=== PATIENT | male | born 1950 | race Caucasian/White ===

== ENCOUNTER 2022-11-05 13:26 | Observation (INO) | payer OTHER ==
--- OUTSIDE RECORDS SUMMARY | 2022-11-05 13:31 | XMS REPORT | Continuity of Care Document ---
:1950 Author Organization [facility] t Address [address] [place] [address] Care Team Providers Name Role Phone Jose Elias PAREKH, Jessy Primary Care Physician Diane Pollock MA Attending Clinician Unavailable Demarcus PAREKH, Balwinder BAlyx Attending Clinician Diann Amaya Attending Clinician Unavailable Provider , Not In System Attending Clinician Unavailable Maria Luz Hamilton MA Attending Clinician Unavailable Barbara Anderson RN Attending Clinician Unavailable Imelda Joaquin RN Attending Clinician Unavailable Zamzam Reyes DO Attending Clinician Micha Brenner MD Attending Clinician Keturah Cameron MD Attending Clinician Erik Tsang MD Attending Clinician [phone] Meme Almendarez RN Attending Clinician Unavailable Dee Lincoln MA Attending Clinician Unavailable Irene Huitron RN Attending Clinician Unavailable Anderson Mendoza Attending Clinician Unavailable ZAMZAM REYES Admitting Clinician Unavailable MD BALWINDER TRACY BAlyx Admitting Clinician Unavailable Payers Payer Name Policy Type Policy Number Effective Date Expiration Date S ource Problems Condition Condition Condition Status Onset Resolution Last Treating Co mments Source Name Details Category Date Date Treatment Clinician Date Chronic Chronic Disease Active Methodi obstructiv obstructiv 1-11 st e asthma e asthma 00:00: Hospit a with acute with acute 00 l exacerbati exacerbati on on Hypoxia Hypoxia Disease Active 2021-05 Methodi 0-20 [facility] 00:00: Hospita 00 l Malignant Malignant Disease Active Met hodi neoplasm neoplasm 4 st of lung of lung 00:00: Hospita 00 l Cough Cough Disease Active Methodi 4 st 00:00: Hospita 00 l Lung Lung Disease Active Methodi nodule nodule 08-21 st 00:00: Hospita 00 l Encounter Encounter Disease Active Met hodi for for 08-22 screening screening 00:00: Hosp arian for lung for lung 00 l cancer cancer Nicotine Nicotine Disease Active Metho di dependence dependence 08-22 , , 00:00: Hospita cigarettes cigarettes 00 l , in , in remission remission Lung Lung Disease Active Methodi nodule nodule 12-21 00:00: Hospita 00 l Insomnia Insomnia Disease Active Metho di 12-21 st 00:00: Hospita 00 l Obstructiv Obstructiv Disease Active 2018-05 M ethodi e chronic e chronic 2 bronchitis bronchitis 00:00: Ho spita without without 00 l exacerbati exacerbati on on Hypertensi Hypertensi Disease Active 2017-05 M ethodi on on 06-23 00:00: Hospita 00 l Gastroesop Gastroesop Disease Active 2017-05 M ethodi hageal hageal 0 reflux reflux 00:00: Hospita disease disease 00 l without without esophagiti esophagiti s s Need for Need for Disease Active 2017-05 Metho di vaccinatio vaccinatio 0 st n n 00:00: Hospita 00 l Chronic Chronic Disease Active Methodi obstructiv obstructiv 11-13 e e 00:00: Hospita pulmonary pulmonary 00 l disease disease COPD COPD Disease Active Methodi exacerbati exacerbati 11-13 st on on 00:00: Hospita 00 l Allergies, Adverse Reactions, Alerts Allergy Allergy Status Severity Reaction(s) Onset Inactive Treating Comm ents Source Name Type Date Date Clinician Levoflox Propensi Active Other (See 2019-05 Causes Me thodi acin ty to Comments) 1-[address] adverse 00:00: Hospita reaction 00 l s to drug Albutero Propensi Active Method i l ty to 6 st adverse 00:00: Hospita reaction 00 l s to drug Penicill Propensi Active Rash Method i in G ty to 10-25 st adverse 00:00: Hospita reaction 00 l s to drug Family History Family Member Diagnosis Comments Start Date Stop Date Source Natural mother Hypertension [facility] Natural mother Lung cancer [facility] Social History Social Habit Start Date Stop Date Quantity Comments Source Gender identity 2019-08-08 Identifies as male M ethodist 15:20:16 [facility] Sexual orientation 2019-08-08 Heterosexual Meth odist 15:20:16 (finding) [facility] Alcohol intake 2022-08-14 2022-08-14 Current non-drinker M ethodist 00:00:00 00:00:00 of alcohol Hospital (finding) History of Social 2022-08-14 2022-08-[address] function 00:00:00 00:00:00 [facility] Cigarettes smoked 2022-03-15 2022-03-15 [facility] per 00:00:00 00:00:00 Hospita l day) - Reported Cigarette 2022-03-15 2022-03-15 [facility] pack-[facility] 00:00:00 00:00:00 Hospital Tobacco use and 2022-03-15 2022-03-15 Former smokeless Met [facility] exposure 00:00:00 00:00:00 tobacco user [facility] History of tobacco 2016-03-09 Current smoker Me [facility]ist use 00:00:00 [facility] Sex Assigned At [birth year] [facility] 00:00:[facility] 00:[facility]:00 Hospital Smoking Status Start Date Stop Date Source Ex-smoker 2022-03-15 00:00:00 2022-03-15 00:00:00 [facility] Medications Ordered Filled Start Stop Current Ordering Indication Dosage Frequency Signature Comments Components Source Medication Medication Date Date Medication? Clinician (SIG) Name Name predniSONE Yes Po 40 mg x M ethodi (DELTASONE) 5-30 3 days, 30 st 10 mg 00:00: mg x 3 Hospita tablet 00 days, 20 l mg x 3 days, 10 mg x 3 days, 5 mg x 3 days levoFLOXaci 2022- No 500mg QD Take 1 Me thodi n 5-30 06-[address] (Levaquin) 00:00: 04:59 (500 mg Hos lena 500 MG 00 :00 total) by l tablet mouth daily for 7 days. Trelegy Yes QD Inhale 1 Method i Ellipta 4-[address] 100-62.5-25 00:00: s once Hosp arian mcg blister 00 daily. l with device powder for inhalation fluticasone 2022- Yes INHALE 1 M ethodi -umeclidin- 4-24 07-[address] vilanter 00:00: 04:59 MOUTH Hospita (Trelegy 00 :00 EVERY DAY l Ellipta) 100-62.5-25 mcg blister with device powder for inhalation diphenhydrA Yes 25mg QD Take 1 Meth irene MINE 3-21 tablet (25 st (BENADRYL) 12:12: mg total) Ho spita 25 mg 23 by mouth l tablet nightly as needed for sleep. multivitami Yes 1{tbl} QD Take 1 Me thodi n 3-[address] (THERAGRAN) 12:10: mouth Hospi ta tablet 48 daily. l atorvastati Yes 20mg QD Take 1 Meth irene n (LIPITOR) 3-21 tablet (20 st 20 mg 12:10: mg total) Hospita tablet 48 by mouth l daily. Default OP ins fluticasone Yes SHAKE Metho di propionate 3-[address] (FLONASE) 00:00: USE 2 Hospita 50 00 SPRAYS(100 l mcg/actuati MCG) IN on nasal EACH spray NOSTRIL DAILY fexofenadin 2023- Yes 180mg QD Take 1 Me thodi e (Krysta 3-21 03-[address] Allergy) 00:00: 04:59 (180 mg Hospi ta 180 MG 00 :00 total) by l tablet mouth daily. predniSONE 2022-2022- No 4 tabs Meth irene (DELTASONE) 3-21 04-[address] 10 mg 00:00: 04:59 days, 3 Hospita tablet 00 :00 tabs daily l X 3 days, 2 tabs daily X 3 days, 1 tab daily X 3 days, then 1/2 tab daily X 3 days. fluticasone 0 2023- No 100ug QD 2 sprays Methodi propionate 3-21 03-21 ([address] (Flonase 00:00: 00:00 total) by Hos lena Allergy 00 :00 Each Nare l Relief) 50 route mcg/actuati daily. on nasal spray Trelegy 2022- No QD Inhale Methodi Ellipta 1-13 04-[address] 100-62.5-25 00:00: 00:00 daily. Hos lena mcg blister 00 :00 l with device powder for inhalation levalbutero Yes [id number] 1.25mg Q6H Take 3 mL Methodi l (Xopenex) 1-11 (1.[address] 1.25 mg/3 00:00: total) by Hos lena mL 00 nebulizati l nebulizer on every 6 solution (six) hours as needed for wheezing. predniSONE 2021-05 No Take 4 Meth irene (DELTASONE) 2-29 03-27 tabs daily s t 10 mg 00:00: 00:00 x 3 days, Hospit a tablet 00 :00 3 tabs l daily x 3 days, 2 tabs daily x 3 days, 1 tab daily x 3 days, 1/2 daily x 3 days ipratropium 2021-05 No 3mL Q.25D Take 3 mL Methodi -albuteroL 0-24 10-[address] (DUO-NEB) 18:36: 00:00 nebulizati H ospita 0.5-2.5 45 :00 on 4 l mg/3 mL (four) nebulizer times a day. predniSONE 2021-05- No Take 4 Meth irene (DELTASONE) 0-20 12-29 tabs daily s t 10 mg 00:00: 00:00 x 3 days, Hospit a tablet 00 :00 3 tabs l daily x 3 days, 2 tabs daily x 3 days, 1 tab daily x 3 days, 1/2 daily x 3 days amLODIPine 2021- No TAKE 1 Meth irene (NORVASC) 5 9-21 12-[address] mg tablet 00:00: 05:59 MOUTH Hospit a 00 :00 EVERY DAY l multivitami Yes 1{tbl} QD Take 1 Me thodi n 5-[address] (THERAGRAN) 09:51: mouth Hospi ta tablet 27 daily. l atorvastati Yes 20mg QD Take 20 mg Methodi n (LIPITOR) 5-[address] 20 mg 09:51: in the Hospita tablet 27 morning. l Default OP ins . ipratropium Yes 3mL Q.25D Take 3 mL Methodi -albuteroL 5-[address] (DUO-NEB) 09:51: nebulizati Ho spita 0.5-2.5 27 on 4 l mg/3 mL (four) nebulizer times a day. levalbutero Yes [id number] 1.25mg Q6H Take 3 mL Methodi l (Xopenex) 5-31 (1.[address] 1.25 mg/3 00:00: total) by Hos lena mL 00 nebulizati l nebulizer on every 6 solution (six) hours as needed for wheezing. levalbutero 2022- No [id number] 1.25mg Q6H Take 3 mL Methodi l (Xopenex) 5-31 -11 (1.[address] 1.25 mg/3 00:00: 00:00 total) by Ho spita mL 00 :00 nebulizati l nebulizer on every 6 solution (six) hours as needed for wheezing. amLODIPine 2021- No 5mg QD Take 5 mg M ethodi (NORVASC) 5 -15 -[address] mg tablet 14:44: 00:00 daily. Hospi ta 51 :00 l amLODIPine 2021- No Take 1 Meth irene (NORVASC) 5 3-15 -[address] mg tablet 00:00: 04:59 mouth once H ospita 00 :00 daily l Trelegy 2021- No Inhale 1 Metho di Ellipta 3-15 -[address] 100-62.5-25 00:00: 04:59 mouth once Hospita mcg blister 00 :00 daily l with device powder for inhalation amLODIPine 2021- No Take 1 Meth irene (NORVASC) 5 3-15 -[address] mg tablet 00:00: 04:59 mouth once H ospita 00 :00 daily l Trelegy 2021- No Inhale 1 Metho di Ellipta 3-15 06-14 puff by 100-62.5-25 00:00: 04:59 mouth once Hospita mcg blister 00 :00 daily l with device powder for inhalation ipratropium 2021- No [id number] 3mL Q.25D Take 3 mL Methodi -albuteroL -16 -19 by (DUO-NEB) 00:00: 04:59 nebulizati H ospita 0.5-2.5 00 :00 on 4 l mg/3 mL (four) nebulizer times a day for 30 days. sulfamethox 2021- No 1{tbl} Q.5D Take 1 M ethodi azole-trime 15 - tablet by thoprim 00:00: 05:59 mouth 2 Hospit a (Bactrim) 00 :00 (two) l 400-80 mg times a per tablet day for 7 days. levalbutero 2022- No [id number] 1{puff} Q4H Inhale 1-2 Methodi l (XOPENEX 2-14 02-[address] HFA) 45 00:00: 05:59 every 4 Hospit a mcg/actuati 00 :00 (four) l on inhaler hours as needed for wheezing. levalbutero 2022- [place] [id number] .63mg Q4H Take 3 mL Methodi l (XOPENEX) 2-14 02-15 (0.[address] 0.63 mg/3 00:00: 05:59 total) by Ho spita mL 00 :00 nebulizati l nebulizer on every 4 solution (four) hours as needed for wheezing .asthma attack. levalbutero 2021- No [id number] 1{puff} Q4H Inhale 1-2 Methodi l (XOPENEX 2-14 10-[address] HFA) 45 00:00: 00:00 every 4 Hospit a mcg/actuati 00 :00 (four) l on inhaler hours as needed for wheezing. levalbutero 2021- [place] [id number] .63mg Q4H Take 3 mL Methodi l (XOPENEX) 2-14 10-24 (0.[address] 0.63 mg/3 00:00: 00:00 total) by Ho spita mL 00 :00 nebulizati l nebulizer on every 4 solution (four) hours as needed for wheezing .asthma attack. predniSONE 2021- No 4 tabs Meth irene (DELTASONE) 2-14 03-[address] 10 mg 00:00: 05:59 days, 3 Hospita tablet 00 :00 tabs daily l X 3 days, 2 tabs daily X 3 days, 1 tab daily X 3 days, then 1/2 tab daily X 3 days. Trelegy 2021- No Inhale 1 Metho di Ellipta 1-10 03-[address] 100-62.5-25 00:00: 00:00 mouth once Hospita mcg blister 00 :00 daily l with device powder for inhalation fluticasone 2020-05 No QD Inhale 1 M ethodi -umeclidin- 0-18 10-18 inhalation s t vilanter 08:27: 00:00 s once Hospit a (Trelegy 30 :00 daily. l Ellipta) 100-62.5-25 mcg blister with device powder for inhalation Trelegy 2020-05 No INHALE 1 Metho di Ellipta 0-18 01-[address] 100-62.5-25 00:00: 00:00 DAILY Hosp arian mcg blister 00 :00 l with device powder for inhalation DurezoL No Methodi 0.05 % 06-29 st drops 00:00: 00:00 Hospita 00 :00 l Restasis 2020- No 1[drp] Q.5D 1 drop 2 Me thodi 0.05 % 06-04 (two) st ophthalmic 00:00: 00:00 times a Hos lena emulsion 00 :00 day. l hydroCHLORO Yes 25mg 25 mg. Meth irene thiazide 3-06 st (HYDRODIURI 00:00: Hospit a L) 12.5 MG 00 l tablet hydroCHLORO Yes 25mg 2 tablets M ethodi thiazide 3-06 ([address] (HYDRODIURI 00:00: total). Hos lena L) 12.5 MG 00 l tablet Immunizations Ordered Immunization Filled Immunization Date Status Commen ts Source Name Name FLUZONE HIGH-DOSE PF 2022-03-15 Completed Meth odist 00:00:00 Hospital PFIZER READY TO USE 2021-06-05 Completed Metho dist COVID-19 MRNA 00:00:00 Hospital VACCINATION PFIZER READY TO USE 2021-06-05 Completed Metho dist COVID-19 MRNA 00:00:00 Hospital VACCINATION FLUZONE HIGH-DOSE PF 2021-03-08 Completed [facility] FLUZONE HIGH-DOSE PF 2021-03-08 Completed Meth odist 00:00:00 Hospital PFIZER COVID-19 MRNA 2020-07-26 Completed Meth odist VACCINATION 00:00:00 [facility] PFIZER COVID-19 MRNA 2020-07-26 Completed Meth odist VACCINATION 00:00:00 [facility] PFIZER COVID-19 MRNA 2020-07-05 Completed Meth odist VACCINATION 00:00:00 [facility] PFIZER COVID-19 MRNA 2020-07-05 Completed Meth odist VACCINATION 00:00:00 [facility] FLUZONE HIGH-DOSE PF 2018-02-25 Completed [facility] odist 00:00:00 [facility] FLUZONE HIGH-DOSE PF 2018-02-25 Completed Meth odist 00:00:00 Hospital Vital Signs Vital Name Observation Time Observation Value Comments Source Systolic blood 2022-08-14 17:10:00 144 mm[Hg] Method [facility] pressure Diastolic blood 2022-08-14 17:10:00 69 mm[Hg[facility] pressure Heart rate 2022-08-14 17:10:00 83 /min [facility] Body temperature 2022-08-14 17:10:00 36.78 Maya [facility] Respiratory rate 2022-08-14 17:10:00 14 /min [facility] Body height 2022-08-14 17:10:00 167.6 cm [facility] Body weight 2022-08-14 17:10:00 62.506 kg [facility] BMI 2022-08-14 17:10:00 22.24 kg/m2 [facility] Oxygen saturation in 2022-08-14 17:10:00 91 /min [facility] Arterial blood by Pulse oximetry Systolic blood 2021-10-24 14:50:00 151 mm[Hg] [facility] pressure Diastolic blood 2021-10-24 14:50:00 70 mm[Hg] [facility] pressure Heart rate 2021-10-24 14:50:00 77 /min [facility] Body temperature 2021-10-24 14:50:00 37 Maya [facility] Respiratory rate 2021-10-24 14:50:00 14 /min [facility] Body height 2021-10-24 14:50:00 167.6 cm [facility] Body weight 2021-10-24 14:50:00 59.693 kg [facility] BMI 2021-10-24 14:50:00 21.24 kg/m2 [facility] Oxygen saturation in 2021-10-24 14:50:00 92 /min [facility] Arterial blood by Pulse oximetry Procedures Procedure Date / Time Performing Clinician Source Performed PULMONARY FUNCTION TEST 2022-06-06 [facility] CHEST W CONTRAST 2022-02-28 00:00:00 Provider, Not In [facility] System PET CT SKULL BASE TO MID 2021-10-19 17:01[facility]17 [facility] POC GLUCOSE 2021-10-19 15:01:00 [facility] XR CHEST 1 VW PORTABLE 2021-08-22 11:51:54 Erik Tsang [facility] Julio COVID-19 ANTI-SPIKE IGG 2021-08-22 09:10:00 [facility] ANTIBODY TITER COVID-19 SEROLOGY PATIENT 2021-08-22 09:10[facility] HC COMPLETE BLD COUNT 2021-08-22 09:10:00 [facility] W/AUTO DIFF COMPREHENSIVE METABOLIC 2021-08-22 09:10:00 [facility] PANEL ESTIMATED GFR 2021-08-22 09:10:00 [facility] XR CHEST 1 VW PORTABLE 2021-08-22 01:35:00 [facility] XR CHEST 1 VW PORTABLE 2021-08-21 21:11:58 [facility] XR CHEST 1 VW PORTABLE 2021-08-21 19:56:30 [facility] SURGICAL PATHOLOGY 2021-08-21 17:42:00 Balwinder Tracy [facility] REQUEST XR CHEST 1 VW PORTABLE 2021-08-21 [facility]:12[facility]SY NO 2021-08-21 16:54:21 Balwinder Tracy [facility] CONTRAST COVID-19 QUALITATIVE 2021-08-17 15:22:00 Demarcus Balwindertyler Carpenter [facility] RT-PCR PARTIAL THROMBOPLASTIN 2021-08-17 15:22:00 [facility] PROTHROMBIN TIME WITH INR 2021-08-17 15:22:00 Balwinder Tracy [facility] HC COMPLETE BLD COUNT 2021-08-17 15:22:00 Demarcus Balwinder Jayden [facility] W/AUTO DIFF BASIC METABOLIC PANEL 2021-08-17 15:22:00 [facility] Jayden [facility] ESTIMATED GFR 2021-08-17 15:22:00 [facility] CT CHEST WO CONTRAST 2021-07-22 15:49:51 [facility] Balwindertyler Carpenter [facility] CT CHEST WO CONTRAST 2021-02-03 20:16:00 [facility] Jayden [facility] Plan of Care Planned Activity Planned Date Details Comments Source Future Scheduled 2022-11-01 Screening for [facility] Test 16:35:36 malignant neoplasm of colon (procedure) [code = 422746253] Future Scheduled 2022-11-01 Screening for [facility] Test 16:35:36 malignant neoplasm of colon (procedure) [code = 430569006] Future Scheduled 2022-11-01 65+ PNEUMOCOCCAL [facility] Test 16:35:36 VACCINE (1 - PCV) [code = 65+ PNEUMOCOCCAL VACCINE (1 - PCV)] Future Scheduled 2022-11-01 Hepatitis C screening [facility] Test 16:35:36 (procedure) [code = 182625466] Future Scheduled 2022-11-01 Screening for [facility] Test 16:35:36 malignant neoplasm of colon (procedure) [code = 739014514] Future Scheduled 2022-11-01 Screening for [facility] Test 16:35:36 malignant neoplasm of colon (procedure) [code = 673174095] Future Scheduled 2022-11-01 SHINGLES VACCINES (1 Met [facility] Test 16:35:36 of 2) [code = SHINGLES VACCINES (1 of 2)] Future Scheduled 2022-11-01 COVID-19 VACCINE (4 - [facility] Test 16:35:36 Pfizer series) [code = COVID-19 VACCINE (4 - Pfizer series)] Future Scheduled 2022-11-01 INFLUENZA VACCINE [facility] Test 16:35:36 [code = INFLUENZA VACCINE] Future Scheduled 2022-11-01 Screening for [facility] Test 16:35:36 malignant neoplasm of colon (procedure) [code = 295456422] Future Scheduled 2022-02-01 HEPATITIS B VACCINES Met [facility] Test 12:54:14 (1 of 3 - 3-dose series) [code = HEPATITIS B VACCINES (1 of 3 - 3-dose series)] Future Scheduled 2022-02-01 65+ [facility]CCAL [facility] 12:54:14 VACCINE (1 - PCV) [code = 65+ PNEUMOCOCCAL VACCINE (1 - PCV)] Future Scheduled 2022-02-01 Hepatitis C screening [facility] Test 12:54:14 (procedure) [code = 709773773] Future Scheduled 2022-02-01 COLONOSCOPY SCREENING [facility] Test 12:54:14 [code = COLONOSCOPY SCREENING] Future Scheduled 2022-02-01 SHINGLES VACCINES (1 Met [facility] Test 12:54:14 of 2) [code = SHINGLES VACCINES (1 of 2)] Future Scheduled 2022-02-01 COVID-19 VACCINE (4 - [facility] Test 12:54:14 Booster for Pfizer series) [code = COVID-19 VACCINE (4 - Booster for Pfizer series)] Future Scheduled 2022-02-01 INFLUENZA VACCINE Method [facility] Test 12:54:14 [code = INFLUENZA VACCINE] Encounters Start End Encounter Admission Attending Care Care Encounter Source Date/Time Date/Time Type Type Clinicians Facility Department ID 2022-10-26 2022-10-26 Dee Dee Pollock, 1.2.840.1 [id number] Methodi 00:00:00 00:00:[address] 3.430.2.7 Hospit a .3.337409 l .8 2022-10-23 2022-10-23 Orders Pollock, 1.2.840.1 [id number] Methodi 00:00:00 00:00:00 Only Diane 66356.1.[address] 3.430.2.7 Hospit a .3.169367 l .8 2022-10-23 2022-10-23 Telephone Demarcus, 1.2.840.1 [id number] Methodi 00:00:00 00:00:00 Balwinder Carpenter [address] 3.430.2.7 Hospit a .3.048676 l .8 2022-09-17 2022-09-17 Telephone Demarcus 1.2.840.1 [id number] Methodi 00:00:00 00:00:00 Balwinder Carpenter [address]12.[address] 3.430.2.7 Hospit a .3.044466 l .8 2022-09-17 2022-09-17 Refill Demarcus 1.2.840.1 [id number] Methodi 00:00:00 00:00:00 Balwinder Carpenter [address] 3.430.2.7 Hospit a .3.973137 l .8 2022-08-14 2022-08-14 Office Demarcus, 1.2.840.1 [id number] Methodi 12:15:00 12:30:57 Visit Balwinder Carpenter 44338.1.[address] 3.430.2.7 Hospit a .3.725797 l .8 2022-08-14 2022-08-14 Outpatient DEMARCUS, [facility] [id number] [address] [place] 00:00:00 00:00:00 BALWINDER [address] 2022-08-14 2022-08-14 Refill Tracy, 1.2.840.1 [id number] Methodi 00:00:00 00:00:00 Balwinder R[address]Alyx [address] 3.430.2.7 Hospit a .3.019562 l .8 2022-08-14 2022-08-14 Travel 1.2.840.1 [id number] [id number] Methodi 00:00:00 00:00:[address] 3.430.2.7 0.2.7.3.698 Ho spita .3.423557 084.8 l .8 2022-06-06 2022-06-06 Clinical Jose Luis, 1.2.840.1 [id number] Methodi 10:30:00 14:39:22 Support Diann 97463.1.[address] 3.430.2.7 Hospit a .3.785293 l .8 2022-06-06 2022-06-06 Office Demarcus 1.2.840.1 [id number] Methodi 12:15:00 14:11:21 Visit Balwinder RonaldoAlyx 03310.1.[address] 3.430.2.7 Hospit a .3.070743 l .8 2022-06-06 2022-06-06 Travel 1.2.840.1 1.2.982.819 [id number] Methodi 00:00:00 00:00:[address] 3.430.2.7 0.2.7.3.698 Ho spita .3.967224 084.8 l .8 2022-06-06 2022-06-06 Outpatient DEMARCUS [facility] [id number] [address] [place] 00:00:00 00:00:00 [address] 2022-06-06 2022-06-06 Outpatient [facility] [id number] [address] [place] [place] 00:00:00 00:00:[address] 2022-05-24 2022-05-24 Telephone Demarcus 1.2.840.1 [id number] Methodi 00:00:00 00:00:00 Balwinder Carpenter [address]1.[address] 3.430.2.7 Hospit a .3.445677 l .8 2022-05-16 2022-05-16 Telephone Demarcus, 1.2.840.1 [id number] Methodi 00:00:00 00:00:00 Balwinder Carpenter [address] 3.430.2.7 Hospit a .3.242187 l .8 2022-03-23 2022-03-23 Orders Provider, 1.2.840.1 [id number] Methodi 00:00:00 00:00:00 Only Not In 74347.1.[address] System 3.430.2.7 Hospit a .3.247125 l .8 2022-03-15 2022-03-15 Office Demarcus, 1.2.840.1 [id number] Methodi 11:15:00 12:04:27 Visit Balwinder RonaldoAlyx 92351.1.[address] 3.430.2.7 Hospit a .3.192523 l .8 2022-03-15 2022-03-15 Travel 1.2.840.1 1.2.456.726 [id number] Methodi 00:00:00 00:00:[address] 3.430.2.7 0.2.7.3.698 Ho spita .3.936744 084.8 l .8 2022-03-15 2022-03-15 Outpatient [facility] [id number] [address] [place] 00:00:00 00:00:00 BALWINDER [address] 2022-02-14 2022-02-14 Refill Demarcus, 1.2.840.1 [id number] Methodi 00:00:00 00:00:00 Balwinder Carpenter [address]7529.1.[address] 3.430.2.7 Hospit a .3.339335 l .8 2021-10-30 2021-10-30 Telephone Alfonso, 1.2.840.1 [id number] [id number] Methodi 00:00:00 00:00:00 Maria Luz 23633.1.[address] 3.430.2.7 Hospit a .3.309382 l .8 2021-10-24 2021-10-24 [facility], 1.2.840.1 [id number] Methodi 10:00:00 10:26:48 Visit Balwinder Carpenter 84776.1.[address] 3.430.2.7 Hospit a .3.687112 l .8 2021-10-24 2021-10-24 Travel 1.2.840.1 1.2.778.494 [id number] Methodi 00:00:00 00:00:[address] 3.430.2.7 0.2.7.3.698 Ho spita .3.714763 084.8 l .8 2021-10-19 2021-10-19 [facility], 1.2.840.1 [id number] Methodi 09:40:41 23:59:00 Encounter Balwinder Carpenter [address].1.[address] 3.430.2.7 Hospit a .3.421362 l .8 2021-10-19 2021-10-19 Travel 1.2.840.1 1.2.444.339 4410 [id number] Methodi 00:00:00 00:00:[address] 3.430.2.7 0.2.7.3.698 Ho spita .3.208651 084.8 l .8 2021-10-03 2021-10-03 Travel 1.2.840.1 1.2.978.513 5785 [id number] Methodi 00:00:00 00:00:[address] 3.430.2.7 0.2.7.3.698 Ho spita .3.618486 084.8 l .8 2021-08-31 2021-08-31 [facility] Alfonso, 1.2.840.1 [id number] 1594 Methodi 00:00:00 00:00:00 Only Maria Luz 67101.1.[address] 3.430.2.7 Hospit a .3.609803 l .8 2021-08-28 2021-08-28 Office Demarcus, 1.2.840.1 [id number] 8522 Methodi 11:15:00 12:01:56 Visit Balwinder Carpenter 39960.1.[address] 3.430.2.7 Hospit a .3.866973 l .8 2021-08-25 2021-08-25 Telephone Justin, 1.2.840.1 [id number] 244 [id number] Methodi 00:00:00 00:00:[address] 3.430.2.7 Hospit a .3.507094 l .8 2021-08-24 2021-08-24 Telephone Emani, 1.2.840.1 [id number] 2100 [id number] Methodi 00:00:00 00:00:[address] 3.430.2.7 Hospit a .3.748558 l .8 2021-08-21 2021-08-22 Hospital Balwinder Tracy. 1.2.840.1 18415 1012 [id number] Methodi 18:34:00 15:22:00 Encounter Zamzam Reyes 37445.1.[address] [facility] 3.430.2.7 Hospita Keturah Cameron .3.352040 l .8 2021-08-21 2021-08-21 [facility], 1.2.840.1 [id number] 97725 97514 Methodi 16:20:13 18:33:00 Encounter Erik 45984.1.[address] Julio 3.430.2.7 Hosp arian .3.037666 l .8 2021-08-21 2021-08-21 [facility], 1.2.840.1 [id number] 24312 85831 Methodi 15:51:20 16:19:00 Encounter Erik 66837.1.[address] Julio 3.430.2.7 Hosp arian .3.695592 l .8 2021-08-21 2021-08-21 [facility], 1.2.840.1 [id number] Methodi 12:00:27 15:50:00 Encounter Erik 56352.1.[address] Julio 3.430.2.7 Hosp arian .3.124380 l .8 2021-08-21 2021-08-21 [facility] Tsang, 1.2.840.1 [id number] Methodi 11:59:07 11:59:07 Encounter Erik 27284.1.[address] Julio 3.430.2.7 Hosp arian .3.192287 l .8 2021-08-21 2021-08-21 Outpatient [facility] [id number] [address] [place] [address] 00:00:00 00:00:[address]RI[address] 2021-08-21 2021-08-21 Orders Alfonso, 1.2.840.1 [id number] 6625 Methodi 00:00:00 00:00:00 Only Maria Luz 57030.1.[address] 3.430.2.7 Hospit a .3.653525 l .8 2021-08-21 2021-08-21 Travel 1.2.840.1 1.2.163.153 6689 164725 Methodi 00:00:00 00:00:[address] 3.430.2.7 0.2.7.3.698 Ho spita .3.257728 084.8 l .8 2021-08-18 2021-08-18 Dee Dee Tracy, 1.2.840.1 [id number] 2100 [id number] Methodi 00:00:00 00:00:00 Bal[address] 3.430.2.7 Hospit a .3.057502 l .8 2021-08-17 2021-08-17 Pre-Admiss Demarcus, 1.2.840.1 [id number] 757 [id number] Methodi 10:30:00 11:00:00 ion Balwinder B. 68042.1.[address] Testing 3.430.2.7 Hospit a .3.305133 l .8 2021-08-17 2021-08-17 Travel 1.2.840.1 1.2.600.808 5138 687714 Methodi 00:00:00 00:00:[address] 3.430.2.7 0.2.7.3.698 Ho spita .3.917163 084.8 l .8 2021-08-09 2021-08-09 Telephone Erickson, 1.2.840.1 [id number] 2099 104484 Methodi 00:00:00 00:00:[address] 3.430.2.7 Hospit a .3.756203 l .8 2021-08-09 2021-08-09 Travel 1.2.840.1 1.2.098.972 0506 415749 Methodi 00:00:00 00:00:[address] 3.430.2.7 0.2.7.3.698 Ho spita .3.860528 084.8 l .8 2021-08-08 2021-08-08 Refill Demarcus 1.2.840.1 [id number] 4926 Methodi 00:00:00 00:00:00 Balwinder BAlyx [address] 3.430.2.7 Hospit a .3.223592 l .8 2021-08-03 2021-08-03 Travel 1.2.840.1 1.2.693.326 1780 720125 Methodi 00:00:00 00:00:[address] 3.430.2.7 0.2.7.3.698 Ho spita .3.761667 084.8 l .8 2021-07-31 2021-07-31 Juan Pablo Tracy 1.2.840.1 [id number] 1533 Methodi 11:15:00 12:19:54 Visit Balwinder Carpenter 67785.1.[address] 3.430.2.7 Hospit a .3.476719 l .8 2021-07-31 2021-07-31 Travel 1.2.840.1 1.2.676.915 6851 508727 Methodi 00:00:00 00:00:[address] 3.430.2.7 0.2.7.3.698 Ho spita .3.871359 084.8 l .8 2021-07-22 2021-07-22 [facility], 1.2.840.1 [id number] 57 Methodi 09:35:58 23:59:00 Encounter Balwinder Carpenter 60147.1.[address] 3.430.2.7 Hospit a .3.974473 l .8 2021-07-22 2021-07-22 Travel 1.2.840.1 1.2.980.090 3527 690736 Methodi 00:00:00 00:00:[address] 3.430.2.7 0.2.7.3.698 Ho spita .3.520531 084.8 l .8 2021-07-17 2021-07-17 [facility] 1.2.840.1 [id number] 2099 274647 Methodi 00:00:00 00:00:00 Balwinder Carpenter 40421.1.[address] 3.430.2.7 Hospit a .3.883057 l .8 2021-07-13 2021-07-13 Travel 1.2.840.1 1.2.698.609 0762 527672 Methodi 00:00:00 00:00:[address] 3.430.2.7 0.2.7.3.698 Ho spita .3.872699 084.8 l .8 2021-07-12 2021-07-12 [facility] Melvin, 1.2.840.1 [id number] 812339 1070 Methodi 00:00:00 00:00:00 Only Quratulain 23247.1.1 794 s t 3.430.2.7 Hospit a .3.121211 l .8 2021-07-12 2021-07-12 Telephone Demarcus, 1.2.840.1 [id number] 2100 [id number] Methodi 00:00:00 00:00:00 Balwinder Carpenter [address]304.1.[address] 3.430.2.7 Hospit a .3.278451 l .8 2021-07-10 2021-07-10 Office Demarcus, 1.2.840.1 [id number] 7577 Methodi 10:30:00 11:21:40 Visit Balwinder Carpenter 69501.1.[address] 3.430.2.7 Hospit a .3.328517 l .8 2021-07-10 2021-07-10 Travel 1.2.840.1 1.2.763.475 4311 643343 Methodi 00:00:00 00:00:[address] 3.430.2.7 0.2.7.3.698 Ho spita .3.883616 084.8 l .8 2021-06-13 2021-06-13 [facility], 1.2.840.1 [id number] 2100 921948 Methodi 00:00:00 00:00:00 Amada Bonilla 62433.1.1 927 s t ip 3.430.2.7 Hospit a .3.284464 l .8 2021-06-05 2021-06-05 Refill Demarcus, 1.2.840.1 [id number] 6730 Methodi 00:00:00 00:00:00 Balwinder [address]gins[address] 40124.[address] 3.430.2.7 Hospit a .3.437402 l .8 2021-03-16 2021-03-16 Travel 1.2.840.1 1.2.631.354 7009 943154 Methodi 00:00:00 00:00:[address] 3.430.2.7 0.2.7.3.698 Ho spita .3.879687 084.8 l .8 2021-03-14 2021-03-14 [facility], 1.2.840.1 [id number] 9386 Methodi 00:00:00 00:00:00 Only Quratulain 94313.1.1 908 s t 3.430.2.7 Hospit a .3.117754 l .8 2021-03-11 2021-03-11 [facility], 1.2.840.1 [id number] 166438 6311 Methodi 00:00:00 00:00:00 Balwinder Carpenter [address]65.1.[address] 3.430.2.7 Hospit a .3.331234 l .8 2021-03-08 2021-03-08 [facility] Balwinder Tracy. 1.2.840.1 40510 5001 [id number] Methodi 15:30:00 15:30:00 Support Anderson Mendoza 46233.1.[address] 3.430.2.7 Hospit a .3.320400 l .8 2021-03-08 2021-03-08 [facility], 1.2.840.1 [id number] 1907 Methodi 11:30:00 13:47:37 Visit Balwinder Carpenter 21680.1.[address] 3.430.2.7 Hospit a .3.645313 l .8 2021-03-08 2021-03-08 Travel 1.2.840.1 1.2.584.375 7367 544539 Methodi 00:00:00 00:00:[address] 3.430.2.7 0.2.7.3.698 Ho spita .3.569477 084.8 l .8 2021-02-03 2021-02-03 [facility] Tracy, 1.2.840.1 [id number] 69869 65930 Methodi 14:11:10 23:59:00 Encounter Balwinder Carpenter 51586.1.[address] 3.430.2.7 Hospit a .3.740711 l .8 2021-02-03 2021-02-03 Travel 1.2.840.1 1.2.249.504 3343 [id number] Methodi 00:00:00 00:00:[address] 3.430.2.7 0.2.7.3.698 Ho spita .3.877322 084.8 l .8 2020-10-04 2020-10-04 Outpatient [facility] [id number] [address] [place] 00:00:00 00:00:[address] 2020-09-29 2020-09-29 Outpatient [facility] [id number] [address] [place] 00:00:00 00:00:00 BALWINDER [address] 2020-09-09 2020-09-09 Outpatient [facility] [id number] [address] [place] 00:00:00 00:00:00 BALWINDER [address] 2020-08-22 2020-08-22 Outpatient [facility] [id number] [address] [place] 00:00:00 00:00:[address] 2020-04-25 2020-04-25 Outpatient [facility] [id number] [address] [place] 00:00:00 00:00:00 BALWINDER [address] 2019-12-22 2019-12-22 Outpatient [facility] [id number] [address] [place] 00:00:00 00:00:[address] 2019-12-22 2019-12-22 Outpatient [facility] [id number] [address] [place] 00:00:00 00:00:00 BAL[address]ER [address] 2019-08-06 2019-08-06 Outpatient [facility] [id number] [address] [place] 00:00:00 00:00:00 BALWINDER [address] 2019-05-06 2019-05-06 Outpatient [facility] [id number] [address] [place] 00:00:00 00:00:00 BALWINDER [address] Results Test Description Test Time Test Comments Results Result Comments Source Pulmonary function tests, complete (clinic performed) 2023-0 1-11 19:27:59 Test Item Value Reference Range Interpretation Comme nts VC Pre (test code = 5374) 2.84 L 2.64-4.20 VC Predicted (test code = 3.42 5372) VC LLN (test code = 5373) 2.64 VC % Pre of Predicted (test 83.0 % code = 5375) TLC Pre (test code = 5416) 7.09 L 4.76-7.06 TLC Predicted (test code = 5.91 5414) TLC LLN (test code = 5415) 4.76 TLC % Pre of Predicted (test 120.1 % code = 5417) RV Pre (test code = 5402) 4.25 L 1.79-3.14 RV Predicted (test code = 2.46 5400) RV LLN (test code = 5401) 1.79 RV % Pre of Predicted (test 172.9 % code = 5403) RV % TLC Pre (test code = 59.97 % 32.67-50.63 5409) RV % TLC Predicted (test code 42 = 5407) RV % TLC LLN (test code = 33 5408) RV % TLC % Pre of Predicted 144.0 % (test code = 5410) R0.5IN Pre (test code = 5514) 2.98 See_Comment [Automated message] The system which generated this result transmitted ref erence range: 3.06 - 3.06 cmH 2O*s/L. The reference range was not used to interpret this result as normal/abnormal . R0.5IN Predicted (test code = 3.06 5512) R0.5IN LLN (test code = 5513) 3.06 R0.5IN % Pre of Predicted 97.6 % (test code = 5515) FRCpl Pre (test code = 5388) 5.97 L 2.37-4.34 FRCpl % Predicted (test code = 3.35 5386) FRCpl % LLN (test code = 5387) 2.37 FRCpl % Pre of Predicted (test 178.2 % code = 5389) ERV Pre (test code = 5381) 1.72 L 0.89-0.89 ERV Predicted (test code = 0.89 5379) ERV LLN (test code = 5380) 0.89 ERV % Pre of Predicted (test 192.8 % code = 5382) IC Pre (test code = 5395) 1.12 L 2.39-2.39 IC Predicted (test code = 2.39 5393) IC LLN (test code = 5394) 2.39 IC % Pre of Predicted (test 47.0 % code = 5396) sR0.5IN Pre (test code = 5521) 18.98 cmH2O*s Raw Pre (test code = 5507) 6.26 See_Comment [Automated message] The system which generated this result transmitted ref erence range: 3.06 - 3.06 cmH 2O*s/L. The reference range was not used to interpret this result as normal/abnormal . Raw Predicted (test code = 3.06 5505) Raw LLN (test code = 5506) 3.06 Raw % Pre of Predicted (test 204.6 % code = 5508) sGaw Predicted (test code = 0.03 See_Comment [Automated message] The system 5528) which generated this result transmitted ref erence range: 0.08 - 0.08 1/( cmH2O*s). The reference range was not used to interpret this result as normal/abnormal . sGaw Predicted (test code = 0.08 5526) sGaw LLN (test code = 5527) 0.08 sGaw % Pre of Predicted (test 30.1 % code = 5529) FEV1 Post (test code = 5349) 1.27 L 1.83-3.15 FEV1 Pre (test code = 5348) 1.21 L 1.83-3.15 FEV1 Predicted (test code = 2.49 5302) FEV1 LLN (test code = 5347) 1.83 FEV1 % Pre of Predicted (test 48.8 % code = 5308) FEV1 % Post of Predicted (test 50.9 % code = 5350) FEV1 % Change (test code = 4.2 % 5351) FVC Post (test code = 5356) 2.83 L 2.64-4.20 FVC Pre (test code = 5354) 2.84 L 2.64-4.20 FVC Predicted (test code = 3.42 5307) FVC LLN (test code = 5353) 2.64 FVC % Pre of Predicted (test 83.0 % code = 5355) FVC % Post of Predicted (test 82.6 % code = 5357) FVC % Change (test code = -0.4 % 5358) FEV1/FVC % Post (test code = 44.74 % 63.72-83.08 5363) FEV1/FVC % Pre (test code = 42.74 % 63.72-83.08 5361) FEV1/FVC % Predicted (test 73 code = 5359) FEV1/FVC % LLN (test code = 64 5360) FEV1/FVC % Pre of Predicted 58.2 % (test code = 5362) FEV1/FVC % Post of Predicted 61.0 % (test code = 5364) FEV1/FVC % Change (test code = 4.7 % 5365) FEF 25-75% Post (test code = 0.40 L/s 0.55-3.22 5549) FEF 25-75% Pre (test code = 0.39 L/s 0.55-3.22 5547) FEF 25-75% Predicted (test 1.89 code = 5546) FEF 25-75% LLN (test code = 0.55 5545) FEF 25-75% % Pre of Predicted 20.8 % (test code = 5548) FEF 25-75% % Post of Predicted 21.4 % (test code = 5550) FEF 25-75% % Change (test code 3.0 % = 5551) PEF Post (test code = 5369) 4.69 L/s 5.03-8.90 PEF Pre (test code = 5367) 4.63 L/s 5.03-8.90 PEF Predicted (test code = 6.96 5310) PEF LLN (test code = 5366) 5.03 PEF % Pre of Predicted (test 66.5 % code = 5368) PEF % Post of Predicted (test 67.3 % code = 5370) PEF % Change (test code = 1.2 % 5371) DLCO Pre (test code = 5423) 7.78 See_Comment [Automated message] The system which generated this result transmitted ref erence range: 15.45 - 31.38 m l/(min*mmHg). The reference range was not used to interpret this result as normal/abnormal . DLCO Predicted (test code = 23.41 5421) DLCO LLN (test code = 5422) 15.45 DLCO % Pre of Predicted (test 33.2 % code = 5424) DL/VA Pre (test code = 5437) 1.67 See_Comment [Automated message] The system which generated this result transmitted ref erence range: 3.05 - 5.45 ml/ (min*mmHg*L). The reference range was not used to interpret this result as normal/abnormal . 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 N marquez: Mutahr code = 08347-4) [employer]agea[employer] ID: [id number] [facility] [id number] 16:23:31 Test Item Value Reference Range Interpretation Comments Case number (test [id number] code = 1154425) Surgical pathology See link below for PDF report (test code = Lab Report 2255) Result status (test This is Supplemental code = 0933337) Report for [id number] [facility] RNA [Presence] in Respiratory specimen by MICHELLE with probe [id number] 18:49:03 Test Item Value Reference Range Interpretation Comments SARS-CoV-2 (COVID-19) RNA Not detected [Presence] in Respiratory specimen by MICHELLE with probe detection (test code = 60061-5) Whether patient is employed in a Unknown healthcare setting (test code = 65651-2) Whether the patient has symptoms Unknown related to condition of interest (test code = 32731-1) Whether the patient was Unknown hospitalized for condition of interest (test code = 59505-6) Whether the patient was admitted Unknown to intensive care unit (ICU) for condition of interest (test code = 30959-5) Whether patient resides in a Unknown congregate care setting (test code = 42599-2) status (test code = Unknown 92320-8) Date and time of symptom onset Unknown (test code = 68525-1) [facility]
[2022-11-05 13:56] LABS: Absolute Lymphocytes (CBC) 1.1 K/uL (0.7-4.9); Hematocrit 44.3 % (39.6-49.0); Lymphocytes % 8.5 % (15.3-44.8); MCV 89.4 fL (80-100); MPV 7.2 fL (7.6-11.3); RBC Red Blood Cell Count 4.95 M/uL (4.33-5.43)
[2022-11-05 14:12] LABS: Albumin 2.8 g/dL (3.4-5.0); Bilirubin Direct 0.3 mg/dL (0-0.2); Bilirubin Indirect, Calculated 1.1 mg/dL (0.2-0.8); Bilirubin Total 1.4 mg/dL (0.2-1.0); Magnesium 2.3 mg/dL (1.6-2.4); Potassium 3.4 mEq/L (3.5-5.1); Protein, Total 7.3 g/dL (6.4-8.2); Troponin High Sensitivity 10.1 pg/mL (<58.9)
--- NOTE | 2022-11-05 14:45 | RAD REPORT ---
EXAM DESCRIPTION: CT - Chest For Pe Angio - 11/05/2022 2:29 pm CLINICAL HISTORY: sob COMPARISON: February 2022 and July 2022 TECHNIQUE: Dynamically enhanced axial 3 mm thick images of the chest were obtained during administra tion of 100 mL Isovue 370 IV contrast. Coronal and oblique reconstruction images were generated and r eviewed. Exam utilizes a protocol for optimal evaluation of pulmonary arterial tree. Maximum intensity projections 3D imaging was utilized All CT scans are performed using dose optimization technique as appropriate and may include automated exposure control or mA/KV adjustment according to patient size. FINDINGS: A pulmonary embolus is not seen. A thoracic aortic aneurysm is not noted. A pleural effusion is not seen. A pericardial effusion is not seen. A lung consolidation is not present. Bilateral pulmonary nodules have generally mildly enlarged from February 2022. Largest is in the left upper lobe measuring 16 millimeters. Also there has been development several small nodules COPD IMPRESSION: Negative for a pulmonary embolism. Bilateral pulmonary nodules likely neoplasm
--- NOTE | 2022-11-05 14:46 | RAD REPORT ---
EXAM DESCRIPTION: Renan Single View11/05/2022 2:06 pm CLINICAL HISTORY: sob COMPARISON: February 2022 FINDINGS: There are several bilateral pulmonary nodules. Some have developed while others have mildl y enlarged from prior exam probably neoplasm Heart is normal size. A tiny radiopaque foreign bodies overlie the hemithoraces
--- NOTE | 2022-11-05 15:17 | EDPHYS ---
Physician Documentation [facility] Name: Sea Monsivais Age: 72 yrs Sex: Male : 1950 Arrival Date: 11/05/2022 Time: 13:26 Bed 3 Private MD: ED Physician Clayton Ross HPI: 11/05 15:17 This 72 yrs old Male presents to ER via Ambulatory with complaints of Shortness Of ms3 Breath. 15:17 72-year-old male with past medical history of lung cancer, COPD, hypertension presents ms3 for shortness of breath. Patient states that shortness of breath has been ongoing for 4 weeks. Patient states he recently noted his oxygen saturations to be in the low 80s. Patient denies alleviating or inciting factors. Patient states he has had chills and night sweats. Patient denies cough, fever, pain. Historical: - Allergies: 13:40 No Known Allergies; ss - PMHx: 13:40 Lung CA; COPD; HTN; ss - Immunization history:: Adult Immunizations unknown. - Social history:: Smoking status: Patient/guardian denies using tobacco. ROS: 15:17 Neck: Negative for injury, pain, and swelling, Cardiovascular: Negative for chest pain, ms3 and palpitations. Abdomen/GI: Negative for abdominal pain, nausea, vomiting, diarrhea, and constipation, MS/Extremity: Negative for injury and deformity, Skin: Negative for injury, rash, and discoloration. 15:17 Constitutional: Positive for chills, Negative for fever. 15:17 Respiratory: Positive for cough, shortness of breath. 15:17 All other systems are negative. Exam: 14:31 ECG was reviewed by the Attending Physician. ms3 15:17 Constitutional: This is a well developed, well nourished patient who is awake, alert, ms3 and in no acute distress. Head/Face: Normocephalic, atraumatic. Neck: Trachea midline, no cervical lymphadenopathy. Supple, full range of motion without nuchal rigidity, or vertebral point tenderness. No Meningismus. Chest/axilla: Normal chest wall appearance and motion. Nontender with no deformity. 15:17 Abdomen/GI: Soft, non-tender, with normal bowel sounds. No distension or tympany. No guarding or rebound. No evidence of tenderness throughout. Skin: Warm, dry with normal turgor. Normal color with no rashes, no lesions, and no evidence of cellulitis. MS/ Extremity: Pulses equal, no cyanosis. Neurovascular intact. Full, normal range of motion. 15:17 Cardiovascular: Rate: tachycardic, Rhythm: regular, Pulses: no pulse deficits are appreciated. Vital Signs: 13:39 BP 129 / 68; Pulse 104; Resp 24; Temp 97.5(O); Pulse Ox 91% on R/A; Weight 61.23 kg; ss Height 5 ft. 5 in. ; Pain 0/10; 13:47 BP 161 / 74; Pulse 93; Resp 18; Pulse Ox 95% on 3 lpm NC; ko1 14:57 BP 127 / 81; Pulse 88; Resp 18; Pulse Ox 96% on 3 lpm NC; ko1 16:00 BP 128 / 80; Pulse 84; Resp 18; Pulse Ox 95% ; ko1 17:00 BP 130 / 69; Pulse 82; Resp 16; Pulse Ox 95% ; ko1 18:00 BP 120 / 72; Pulse 79; Resp 18; Pulse Ox 95% ; ko1 18:09 BP 120 / 72; Pulse 82; Resp 18; Pulse Ox 95% on 3 lpm NC; ph 20:06 BP 124 / 68; Pulse 78; Resp 16; Pulse Ox 95% on 4 lpm NC; jb4 13:39 Body Mass Index 22.46 (61.23 kg, 165.1 cm) ss 13:39 Pain Scale: Adult ss MDM: 13:33 Patient medically screened. ms3 15:16 Differential diagnosis: Chronic Obstructive Pulmonary Disease pneumonia, Pneumothorax ms3 pulmonary edema, Pulmonary Embolism. Data reviewed: vital signs, nurses notes, and as a result, I will admit patient. Consideration of Admission/Observation Patient was admitted/placed on observation. Management of patient was discussed with the following: Hospitalist: Discussed case with HORTENCIA Marroquin with Dr Matos. He accepts patient.. Independent interpretation of the following test(s) in the Emergency Department equipment monitor phototypesetting: rate is 111 beats/min, Rhythm is sinus tachycardia, with no ectopy, Interpretation: normal rhythm, tachycardia. Counseling: I had a detailed discussion with the patient and/or guardian regarding: the historical points, exam findings, and any diagnostic results supporting the discharge/admit diagnosis, lab results, radiology results, the need for further work-up and treatment in the hospital. ED course: . 15:17 Care significantly affected by the following chronic conditions: Hypertension, Chronic ms3 Obstructive Pulmonary Disease, Cancer. Response to treatment: the patient's symptoms have markedly improved after treatment, and as a result, I will admit patient. 11/05 13:33 Order name: Basic Metabolic Panel; Complete Time: 14:19 ms3 11/05 13:33 Order name: CBC with Diff; Complete Time: 14:19 ms3 11/05 13:33 Order name: LFT's; Complete Time: 14:19 ms3 11/05 13:33 Order name: Magnesium; Complete Time: 14:19 ms3 11/05 13:33 Order name: NT PRO-BNP; Complete Time: 14:19 ms3 11/05 13:33 Order name: Troponin HS; Complete Time: 14:19 ms3 11/05 18:42 Order name: CBC with Automated Diff EDMS 11/05 18:58 Order name: Phosphorus EDMS 11/05 18:58 Order name: Magnesium EDMS 11/05 13:33 Order name: XRAY Chest (1 view); Complete Time: 15:04 ms3 11/05 13:33 Order name: CT Chest For PE Angio; Complete Time: 15:04 ms3 11/05 13:33 Order name: EKG; Complete Time: 13:34 ms3 11/05 13:33 Order name: Cardiac monitoring; Complete Time: 13:46 ms3 11/05 13:33 Order name: EKG - Nurse/Tech; Complete Time: 13:46 ms3 11/05 13:33 Order name: IV Saline Lock; Complete Time: 13:46 ms3 11/05 13:33 Order name: Labs collected and sent; Complete Time: 13:46 ms3 11/05 13:33 Order name: O2 Per Protocol; Complete Time: 13:40 ms3 11/05 13:33 Order name: O2 Sat Monitoring; Complete Time: 13:40 ms3 EC:31 Rate is 95 beats/min. Rhythm is regular. Left axis deviation noted. CA interval is ms3 normal. QRS interval is normal. Clinical impression: NSR w/ Non-specific ST/T Changes. Interpreted by me. Reviewed by me. Administered Medications: No medications were administered Disposition Summary: 11/05/22 15:16 Hospitalization Ordered Hospitalization Status: Inpatient Admission ms3 Provider: Nilton Matos ms3 Location: Telemetry/MedSurg (Inpatient) ms3 Condition: Stable ms3 Problem: new ms3 Symptoms: are unchanged ms3 Bed/Room Type: Standard ms3 Room Assignment: 415(11/05/22 19:38) cg Diagnosis - Acute respiratory failure with hypoxia ms3 - Lung cancer ms3 Forms: - Medication Reconciliation Form ms3 - SBAR form ms3 Signatures: Dispatcher [employer] Aby Baumann RN RN ss Jazmine Hamilton RN RN cg Clayton Ross DO DO ms3 Kena Rebollar RN RN ko1 Corrections: (The following items were deleted from the chart) 19:38 15:16 ms3 cg
--- NOTE | 2022-11-05 15:17 | ER ---
Nurse's Notes [facility] Arnie Name: Sea Monsivais Age: 72 yrs Sex: Male : 1950 Arrival Date: 11/05/2022 Time: 13:26 Bed 3 Private MD: Diagnosis: Acute respiratory failure with hypoxia;Lung cancer Presentation: 11/05 13:39 Chief complaint: Patient states: shortness of breath x 4-5 weeks. HX of lung CA, COPD. ss Coronavirus screen: Client denies travel out of the [place] in the last 14 days. Client presents with at least one sign or symptom that may indicate coronavirus-19. Ebola Screen: Patient denies exposure to infectious person. Patient denies travel to an Ebola-affected area in the 21 days before illness onset. Initial Sepsis Screen: Does the patient meet any 2 criteria? RR > 20 per min. HR > 90 bpm. Does the patient have a suspected source of infection? No. Patient's initial sepsis screen is negative. Risk Assessment: Do you want to hurt yourself or someone else? Patient reports no desire to harm self or others. Onset of symptoms is unknown. 13:39 Method Of Arrival: Ambulatory ss 13:39 Acuity: SAVANNA 2 ss Historical: - Allergies: 13:40 No Known Allergies; ss - PMHx: 13:40 Lung CA; COPD; HTN; ss - Immunization history:: Adult Immunizations unknown. - Social history:: Smoking status: Patient/guardian denies using tobacco. Screenin:47 [facility] ED Fall Risk Assessment (Adult) History of falling in the last 3 months, ko1 including since admission No falls in past 3 months (0 pts) Confusion or Disorientation No (0 pts) Intoxicated or Sedated No (0 pts) Impaired Gait No (0 pts) Mobility Assist Device Used No (0 pt) Altered Elimination No (0 pt) Score/Fall Risk Level 0 - 2 = Low Risk Oriented to surroundings, Maintained a safe environment, Educated pt \T\ family on fall prevention, incl call for assistance when getting out of bed, Assessed \T\ reinforced patient's understanding of fall precautions, Provided non-skid footwear, Hourly rounding (assess needs \T\ fall precautionary measures) done, Used ambulatory aids as needed (educated on \T\ assisted with), Used gait belt as appropriate. Abuse screen: Denies threats or abuse. Denies injuries from another. Nutritional screening: No deficits noted. Tuberculosis screening: No symptoms or risk factors identified. Assessment: 13:40 General: Appears in no apparent distress. uncomfortable, Behavior is calm, cooperative, ko1 appropriate for age. Pain: Denies pain. Neuro: No deficits noted. Cardiovascular: Reports shortness of breath. Respiratory: Reports shortness of breath at rest on exertion. GI: No deficits noted. : No deficits noted. EENT: No deficits noted. Derm: No deficits noted. Musculoskeletal: No deficits noted. 13:40 Cardiovascular: Rhythm is sinus rhythm. Respiratory: Airway is patent Respiratory ko1 effort is labored, Breath sounds are diminished bilaterally. Breath sounds with wheezes bilaterally. 16:30 Reassessment: Patient appears in no apparent distress at this time. Patient and/or ph family updated on plan of care and expected duration. Pain level reassessed. Patient is alert, oriented x 3, equal unlabored respirations, skin warm/dry/pink. Pt ambulated to restroom w/ steady gait. 19:00 Reassessment: Patient appears in no apparent distress at this time. Patient and/or jb4 family updated on plan of care and expected duration. Pain level reassessed. Patient is alert, oriented x 3, equal unlabored respirations, skin warm/dry/pink. 20:00 Reassessment: Patient appears in no apparent distress at this time. Patient and/or jb4 family updated on plan of care and expected duration. Pain level reassessed. Patient is alert, oriented x 3, equal unlabored respirations, skin warm/dry/pink. 21:00 Reassessment: Patient appears in no apparent distress at this time. Patient and/or jb4 family updated on plan of care and expected duration. Pain level reassessed. Patient is alert, oriented x 3, equal unlabored respirations, skin warm/dry/pink. Vital Signs: 13:39 BP 129 / 68; Pulse 104; Resp 24; Temp 97.5(O); Pulse Ox 91% on R/A; Weight 61.23 kg; ss Height 5 ft. 5 in. ; Pain 0/10; 13:47 BP 161 / 74; Pulse 93; Resp 18; Pulse Ox 95% on 3 lpm NC; ko1 14:57 BP 127 / 81; Pulse 88; Resp 18; Pulse Ox 96% on 3 lpm NC; ko1 16:00 BP 128 / 80; Pulse 84; Resp 18; Pulse Ox 95% ; ko1 17:00 BP 130 / 69; Pulse 82; Resp 16; Pulse Ox 95% ; ko1 18:00 BP 120 / 72; Pulse 79; Resp 18; Pulse Ox 95% ; ko1 18:09 BP 120 / 72; Pulse 82; Resp 18; Pulse Ox 95% on 3 lpm NC; ph 20:06 BP 124 / 68; Pulse 78; Resp 16; Pulse Ox 95% on 4 lpm NC; jb4 13:39 Body Mass Index 22.46 (61.23 kg, 165.1 cm) ss 13:39 Pain Scale: Adult ss Vitals: 14:57 Cardiac Rhythm Assessment Sinus rhythm W/unifocal PVC's. ko1 ED Course: 13:32 Patient arrived in ED. ss 13:33 Clayton Ross DO is Attending Physician. ms3 13:40 Triage completed. ss 13:40 Arm band placed on right wrist. ss 13:40 No provider procedures requiring assistance completed. ko1 13:45 Inserted saline lock: 20 gauge in right antecubital area, using aseptic technique. ko1 Blood collected. 13:46 Basic Metabolic Panel Sent. ko1 13:46 CBC with Diff Sent. ko1 13:47 Patient has correct armband on for positive identification. Placed in gown. Bed in low ko1 position. Call light in reach. Side rails up X 1. Client placed on continuous cardiac and pulse oximetry monitoring. NIBP monitoring applied. bus monitor on. Door closed. Noise minimized. Lights dimmed. Warm blanket given. 13:47 LFT's Sent. ko1 13:47 Magnesium Sent. ko1 13:47 NT PRO-BNP Sent. ko1 13:47 Troponin HS Sent. ko1 13:47 EKG done, by ED staff, reviewed by Clayton Ross DO. mb9 13:55 Silvana Rojas, RN is Primary Nurse. ph 14:08 XRAY Chest (1 view) In Process Unspecified. EDMS 14:31 CT Chest For PE Angio In Process Unspecified. EDMS 15:15 Nilton Matos MD is Hospitalizing Provider. ms3 20:06 Patient admitted, IV remains in place. jb4 Administered Medications: No medications were administered Medication: 13:47 VIS not applicable for this client. ko1 Outcome: 15:16 Decision to Hospitalize by Provider. ms3 21:01 Admitted to Tele accompanied by nurse, via wheelchair, room 415, with oxygen, with jb4 chart, Report called to INGRID Mitchell 21:01 Condition: stable 21:01 Discharge instructions given to patient, Instructed on the need for admit, Demonstrated understanding of instructions. 21:01 Patient left the ED. jb4 Signatures: Dispatcher [employer] EDMS Aby Cobb, RN RN Silvana Rojas, RN RN Marcial Felix RN RN jb4 Clayton Ross DO DO ms3 Kena Rebollar, RN RN ko1 Deonna Salazar, RN RN mb9 Corrections: (The following items were deleted from the chart) 21:00 20:06 BP 124 / 68; Pulse 78bpm; Resp 16bpm; Pulse Ox 95% RA; jb4 jb4 21: 20:06 Admitted to Tele accompanied by nurse, via wheelchair, room 415, with oxygen, jb4 with chart, Report called to INGRID Mitchell jbAleida 21: 20:06 Condition: stable jb4 jb4 21: 20:06 Discharge instructions given to patient, Instructed on the need for admit, jb4 Demonstrated understanding of instructions, jb4
[2022-11-05] MEDS ORDERED: ACETAMINOPHEN 325 MG TABLET PO PRN (16:55)
[2022-11-05] MEDS ORDERED: TRAMADOL HCL 50 MG TAB PO PRN (16:56)
[2022-11-05] MEDS ORDERED: ONDANSETRON 4 MG/2 ML VIAL IV PRN (17:01)
--- NOTE | 2022-11-05 17:03 | P.HP ---
Certification for Inpatient Patient admitted to: Observation With expected LOS: <2 Midnights Patient will require the following post-hospital care: None Practitioner: I am a practitioner with admitting privileges, knowledge of patient current condition, hospital course, and medical plan of care. Services: Services provided to patient in accordance with Admission requirements found in Title 42 Section 412.3 of the Code of Federal Regulations Patient History Date of Service: 11/05/22 Reason for admission: SOB History of Present Illness: Patient is a 72-year-old male with a past medical history significant for lung cancer, COPD, hypertension who presents with complaint of worsening shortness of breath that has been ongoing for the past 4 weeks. Patient reported that he had radiation therapy 2 years ago for his lung cancer and indicated he still has lung cancer. Patient follows up with an outpatient manager of enterprise. Patient reported associated signs and symptoms of chills, night sweats and dizziness. Patient denies any other signs or symptoms. Symptoms are aggravated or relieved by nothing. Patient reported that he checked his pulse oximetry at home and his O2 sat was in the 80s on room air and patient decided to present to the hospital for medical evaluation. Of note, patient has not been compliant with his home medication-- prednisone. Allergies No Known Allergies Allergy (Unverified 11/05/22 17:00) Home Medications: Amlodipine [Norvasc*] 1 tab PO DAILY 11/05/22 Atorvastatin Calcium [Lipitor*] 1 tab PO DAILY 11/05/22 Diphenhydramine HCl [Benadryl Allergy] 1 tab PO BEDTIME 11/05/22 Fluticasone/Umeclidin/Vilanter [Trelegy Ellipta 100-62.5-25] 1 inh PO DAILY 11/05/22 hydroCHLOROthiazide [Hydrochlorothiazide] 1 tab PO DAILY 11/05/22 levalbuterol HCL [Levalbuterol HCl] 1 aero IN DAILY PRN 11/05/22 - Past Medical/Surgical History -: Lung Cancer -: HTN -: COPD Past Surgical History: Reviewed- Non-Contributory - Family History Family History: Reviewed- Non-Contributory - Social History Smoking Status: Former smoker Alcohol use: No CD- Drugs: No Caffeine use: Yes Place of Residence: Home Review of Systems General: Chills, Sweats Eyes: Unremarkable ENT: Unremarkable Respiratory: Shortness of Breath Cardiovascular: Unremarkable Gastrointestinal: Unremarkable Genitourinary: Unremarkable Musculoskeletal: Unremarkable Integumentary: Unremarkable Neurological: Other (Dizziness) Lymphatics: Unremarkable Physical Examination - Physical Exam General: Alert, In no apparent distress, Oriented x3, Cooperative HEENT: Atraumatic, PERRLA, Mucous membr. moist/pink, EOMI, Sclerae nonicteric Neck: Supple, 2+ carotid pulse no bruit, No LAD, Without JVD or thyroid abnormality Respiratory: Diminished Cardiovascular: No edema, Regular rate/rhythm, Normal S1 S2 Capillary refill: <2 Seconds Gastrointestinal: Normal bowel sounds, No tenderness Musculoskeletal: No clubbing, No swelling, No contractures, No tenderness Integumentary: No rashes, No breakdown, No significant lesion Neurological: Normal gait, Normal speech, Normal strength at 5/5 x4 extr, Normal tone, Normal affect Lymphatics: No axilla or inguinal lymphadenopathy - Studies Laboratory Data (last 24 hrs) 11/05/22 13:40: WBC 12.40 H, Hgb 14.8, Hct 44.3, Plt Count 293 11/05/22 13:40: Sodium 132 L, Potassium 3.4 L, BUN 16, Creatinine 1.00, Glucose 109 H, Magnesium 2.3, Total Bilirubin 1.4 H, AST 33, ALT 47, Alkaline Phosphatase 62 Assessment and Plan - Plan -- Acute on chronic respiratory failure with hypoxia. CTA PE protocol indicates negative findings for PE but indicates "Bilateral pulmonary nodules likely neoplasm". Pulmonology consulted. Patient placed on steroids and neb treatment with albuterol\\Atrovent. Continue O2 therapy. --Acute on chronic COPD exacerbation. Continue current treatment regimen. Continue home medications. Further management per manager of enterprise. --Hypertension. Stable. Continue home medication. --Hyperlipidemia. Continue statin. --Leukocytosis. Likely steroid-induced. We will continue to monitor WBC levels --Hypokalemia. Replete as needed. --CKD 2. Stable. We will continue to monitor renal functions. --DVT prophylaxis with Lovenox subQ. Discharge Plan: Home Plan to discharge in: 48 Hours - Advance Directives Does patient have a Living Will: No Does patient have a Durable POA for Healthcare: No - Code Status/Comfort Care Code Status Assessed: Yes Physician Review: Patient Assessed, Agree with Above Assessment and Plan Critical Care: No
[2022-11-05 18:41] LABS: Absolute Lymphocytes (CBC) 1.1 K/uL (0.7-4.9); Hematocrit 42.7 % (39.6-49.0); Lymphocytes % 10.4 % (15.3-44.8); MCV 90.1 fL (80-100); RBC Red Blood Cell Count 4.74 M/uL (4.33-5.43)
[2022-11-05 18:58] LABS: Magnesium 2.2 mg/dL (1.6-2.4); Phosphorus 3.4 mg/dL (2.5-4.9)
[2022-11-05] MEDS: IPRATROPIUM BROM 0.5MG/2.5ML NEB SCH ×2 (19:30→20:00)
[2022-11-05] MEDS: ALBUTEROL 2.5 MG/3 ML NEB SOL NEB SCH ×2 (19:30→20:00)
[2022-11-05 20:59] VITALS: BMI 21.1
[2022-11-05] MEDS: dexAMETHasone 4 MG/ML VIAL IV SCH (21:31)
[2022-11-05 23:28] LABS: Urine Bacteria None Seen /HPF (<20); Urine Bilirubin NEGATIVE (Negative); Urine Blood Negative (Negative); Urine Clarity Clear (Clear); Urine Color Light-Yellow (Yellow); Urine Glucose NEGATIVE (Negative); Urine Protein TRACE (Negative); Urine RBC <5 /HPF (None Seen); Urine Urobilinogen Normal (Normal); Urine pH 6.5 (5.0-7.0)
[2022-11-05 23:32] LABS: Specific Gravity > 1.035 (1.005-1.030)
[2022-11-06] MEDS: IPRATROPIUM BROM 0.5MG/2.5ML NEB SCH ×4 (01:40→19:55)
[2022-11-06] MEDS: ALBUTEROL 2.5 MG/3 ML NEB SOL NEB SCH ×4 (01:40→19:55)
[2022-11-06 04:57] LABS: Potassium 4.3 mEq/L (3.5-5.1)
[2022-11-06] MEDS: ENOXAPARIN 40 MG/0.4 ML SQ SCH (08:02)
[2022-11-06] MEDS: dexAMETHasone 4 MG/ML VIAL IV SCH (08:02)
[2022-11-06] MEDS: ASPIRIN 81 MG CHEWABLE TABLET PO SCH (08:02)
[2022-11-06] MEDS ORDERED: CEFTRIAXONE 1,000 MG in NA CHLORIDE 0.9% 50 ML IVPB SCH (09:00)
[2022-11-06] MEDS ORDERED: HOME MED 1 EA UNK (Fluticasone/Umeclidin/Vilanter [Trelegy Ellipta 100-62.5-25] Blst.W.Dev PO SCH (09:00)
[2022-11-06] MEDS ORDERED: AZITHROMYCIN IV 500 MG in NA CHLORIDE 0.9% 250 ML IVPB SCH (09:00)
[2022-11-06] MEDS: predniSONE 20 MG TAB PO SCH ×2 (09:00→20:18)
[2022-11-06] MEDS: hydroCHLOROthiazide 25 MG TAB PO SCH (10:17)
[2022-11-06] MEDS: AMOX/K CLAV 500 MG TAB PO SCH ×2 (10:17→20:17)
[2022-11-06] MEDS: AMLODIPINE 5 MG TAB PO SCH (10:17)
--- NOTE | 2022-11-06 12:00 | P.CNS ---
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 complaining of worsening shortness of breath smoking in 2016 compliant with his inhalers here in the emergency room found to have multiple pulmonary nodules including a lung mass eyes any cough or phlegm history of lung cancer Allergies No Known Allergies Allergy (Unverified 11/05/22 17:00) Home Medications: Amlodipine [Norvasc*] 1 tab PO DAILY 11/05/22 Atorvastatin Calcium [Lipitor*] 1 tab PO DAILY 11/05/22 Diphenhydramine HCl [Benadryl Allergy] 1 tab PO BEDTIME 11/05/22 Fluticasone/Umeclidin/Vilanter [Trelegy Ellipta 100-62.5-25] 1 inh PO DAILY 11/05/22 hydroCHLOROthiazide [Hydrochlorothiazide] 1 tab PO DAILY 11/05/22 levalbuterol HCL [Levalbuterol HCl] 1 aero IN DAILY PRN 11/05/22 - Past Medical/Surgical History Diabetic: No -: Lung Cancer -: HTN -: COPD - Social History Alcohol use: No CD- Drugs: No Caffeine use: Yes Place of Residence: Home Review of Systems 10-point ROS is otherwise unremarkable General: Weakness Respiratory: Shortness of Breath Physical Examination Temp Pulse Resp BP Pulse Ox 97 F 84 20 123/64 95 11/06/22 08:00 11/06/22 08:00 11/06/22 08:00 11/06/22 08:00 11/06/22 08:00 General: Alert, Oriented x3 Respiratory: Clear to auscultation bilaterally, Diminished Cardiovascular: No edema, Regular rate/rhythm, Normal S1 S2 Gastrointestinal: Normal bowel sounds, Soft and benign, Non-distended Musculoskeletal: No clubbing, No swelling Laboratory Data (last 24 hrs) 11/05/22 13:40: WBC 12.40 H, Hgb 14.8, Hct 44.3, Plt Count 293 11/05/22 13:40: Sodium 132 L, Potassium 3.4 L, BUN 16, Creatinine 1.00, Glucose 109 H, Magnesium 2.3, Total Bilirubin 1.4 H, AST 33, ALT 47, Alkaline Phosphatase 62 - Problems (1) COPD exacerbation Current Visit: Yes Status: Acute Plan: It is 72 years of age admitted with COPD exacerbation requesting oxygen over to p.o. antibiotics DC IV prednisone new with home medications stable for discharge if he needs oxygen (2) Abnormal CT scan of lung Current Visit: Yes Status: Acute Plan: Patient has abnormal CT scan of the lung tract from his prior lung cancer probably metastatic disease have a left upper lobe mass he is seeing a Dr. Buckner in [place] who is a pianos and organs salesperson follow-up with him
[2022-11-06] MEDS ORDERED: ATORVASTATIN 20 MG TAB PO SCH (21:00)
[2022-11-06] MEDS ORDERED: DIPHENHYDRAMINE 25 MG TAB/CAP PO PRN (21:10)
[2022-11-07] MEDS: ALBUTEROL 2.5 MG/3 ML NEB SOL NEB SCH ×3 (01:35→14:05)
[2022-11-07] MEDS: IPRATROPIUM BROM 0.5MG/2.5ML NEB SCH ×3 (01:35→14:05)
[2022-11-07 07:27] LABS: Absolute Lymphocytes (CBC) 0.7 K/uL (0.7-4.9); Hematocrit 42.7 % (39.6-49.0); MCV 90.5 fL (80-100); MPV 7.4 fL (7.6-11.3); RBC Red Blood Cell Count 4.72 M/uL (4.33-5.43)
[2022-11-07 07:42] LABS: Magnesium 2.3 mg/dL (1.6-2.4); Potassium 3.7 mEq/L (3.5-5.1)
[2022-11-07] MEDS: ENOXAPARIN 40 MG/0.4 ML SQ SCH (08:09)
[2022-11-07] MEDS: AMOX/K CLAV 500 MG TAB PO SCH (08:10)
[2022-11-07] MEDS: hydroCHLOROthiazide 25 MG TAB PO SCH (08:10)
[2022-11-07] MEDS: ASPIRIN 81 MG CHEWABLE TABLET PO SCH (08:10)
[2022-11-07] MEDS: predniSONE 20 MG TAB PO SCH (08:10)
[2022-11-07] MEDS: AMLODIPINE 5 MG TAB PO SCH (08:10)
--- NOTE | 2022-11-07 08:23 | EKG ---
Test Date: 2022-11-05 Test Time: 13:45:06 Manager Front: MB MEASUREMENT RESULTS: Intervals: Rate: 95 GA: 138 QRSD: 66 QT: 396 QTc: 497 [place]: P: 84 GA: 138 QRS: 90 T: 78 INTERPRETIVE STATEMENTS: Sinus rhythm with marked sinus arrhythmia with occasional premature ventricular complexes Prolonged QT Abnormal ECG No previous ECG available for comparison Electronically Signed On 11-07-22 08:18:22 CDT by Mina Zarco
[2022-11-07 08:38] VITALS: O2SAT 96
[2022-11-07 09:18] LABS: Blood Morphology Comment NOT SEEN (NOT SEEN); Platelet Estimate ADEQ; White Blood Cell Scan OK (OK)
--- NOTE | 2022-11-07 12:57 | P.PN ---
Date of Service: 11/06/22 Subjective Pt is doing well with no new c/o; arranging for home oxygen. Anticipate discharge home in the morning. Physical Examination -Vitals reviewed - Physical Exam General: Alert, In no apparent distress, Oriented x3, Cooperative Respiratory: Diminished but otherwise clear Cardiovascular: No edema, Regular rate/rhythm, Normal S1 S2 Gastrointestinal: Normal bowel sounds, No tenderness Musculoskeletal: No clubbing, No swelling, No contractures, No tenderness Integumentary: No rashes, No breakdown, No significant lesion Neurological: No focal deficits Assessment and Plan - Assessment Assessment: --Acute on chronic respiratory failure with hypoxia. --Acute on chronic COPD exacerbation. --Hypertension. --Hyperlipidemia. --Leukocytosis. --Hypokalemia. --CKD 2. - Plan Plan: 1. Continue with IV antibiotics 2. Awaiting sputum and blood culture 3. Repeat chest x-ray 4. CT scan of the chest 5. Appreciate pulmonary consultation 6. Continue with nebs as needed 7. O2 per protocol 8. Heplock IV 9. Repeat labs 10. GI and DVT prophylaxis
[2022-11-07] MEDS ORDERED: CHLORASEPTIC LOZENGES PO SCH (16:00)
[2022-11-07 16:06] VITALS: BP 145/67; TEMP 97.5
== END 2022-11-07 16:37 | disposition home or self-care (01) ==
LOC: ER 13:26 → ERHOLD 16:54 → 4TH 20:06
PROVIDERS: ADMIT Hospitalist; ATTEND Hospitalist
DX: J96.21 Acute and chronic respiratory failure with hypoxia (principal); J44.1 Chronic obstructive pulmonary disease with (acute) exacerbation; I10 Essential (primary) hypertension; E78.5 Hyperlipidemia, unspecified; E87.6 Hypokalemia; N18.2 Chronic kidney disease, stage 2 (mild); R91.8 Other nonspecific abnormal finding of lung field; D72.829 Elevated white blood cell count, unspecified; Z85.118 Personal history of other malignant neoplasm of bronchus and lung
CPT/HCPCS: 93005; 85025 ×3; 81001; 80048 ×3; 36415 ×2; 83735 ×3; 84100; 80061; 80076; 84484; 84145; 83880; 71275; 71045; 99285; Q9967; J7512 ×2; J1100 ×2; J7613 ×7; J7644 ×7; J1650 ×2; J7050; J0696; G0378